=== PATIENT | female | born 1985 | race Caucasian/White ===

== ENCOUNTER 2021-03-21 22:58 | Emergency (ER) | payer MEDICAID ==
[~2021-03-21] VITALS: Ht 167.6 cm; Wt 46.3 kg
[2021-03-21 23:03] VITALS: BP_SYST 136
--- NOTE | 2021-03-21 23:09 | NUR ---
Patient to ER bed 2 to gown for evaluation. Side rails up. Report given to DOROTHY Salazar.
--- NOTE | 2021-03-21 23:15 | NUR ---
AWAKE, ALERT. PT STATES SHE WAS HAVING EARWAX BILATERAL EARS AND WAS PRESCRIBED EAR DROPS. TODAY WAS HER LAST DAY OF USING THE EAR DROPS AND WAS MORE AGGRESSIVE IN CLEANING HER EARS WHICH RESULTED IN MUFFLED HEARING IN RIGHT EAR AND LOSS OF HEARING IN LEFT EAR.
--- NOTE | 2021-03-21 23:31 | NUR ---
ER at bedside examining patient.
[2021-03-21] MEDS ORDERED: DOCUSATE SODIUM 100 MG/10 ML UDC PO ONE (23:45)
[2021-03-22] MEDS ORDERED: DOCUSATE SODIUM 100 MG/10 ML UDC ONE (00:01)
--- NOTE | 2021-03-22 00:04 | NUR ---
MEDICATION SQUIRTED IN LEFT EAR CANAL AND LEFT TO SOFTEN EARWAX.
[2021-03-22 02:34] VITALS: BP_SYST 136
--- NOTE | 2021-03-22 02:34 | NUR ---
Patient given written and verbal discharge instructions and verbalizes understanding. ER DR FANNIE CONLEY discussed with patient the results and treatment provided. Patient in stable condition. ID arm band removed. Patient educated on pain management and to follow up with PMD. Pain Scale 0/10. Opportunity for questions provided and answered. Medication side effect fact sheet provided.
== END 2021-03-22 02:34 | disposition home or self-care (01) ==
LOC: SED 22:58
DX: H61.23 Impacted cerumen, bilateral (principal)
CPT/HCPCS: 99282